=== PATIENT | female | born 1990 | race Caucasian/White ===

== ENCOUNTER 2016-03-29 22:15 | Emergency (ER) | payer OTHER ==
--- NOTE | 2016-03-30 01:02 | ED NURSING NOTES ---
Clinical Report - Nurses [facility] [address] [place] [address] 03/29/2016 22:18 Patient: ALPA ALEJANDRO TRIAGE Triage time 22:25. Acuity: LEVEL 4. Chief Complaint: FEVER, SORE THROAT and BODY ACHES. --22:30 Elias Pate R.N. 22:25 03/29/16. BP: 97/74. HR: 100. RR: 16. O2 saturation: 100%. Temp: 100.5 F. Pain level now 09/29. --22:30 Elias Pate R.N. Weight: 60.7 kg stated. Height/Length: 64 inches Per Patient. BMI: 23. --22:29 Elias Pate R.N. Medications Control Pills. Flexeril 5 mg prn. Robaxin Oral. Vivance 10 day . Zoloft Oral. --22:28 Elias Pate R.N. Medication/allergy information source: the patient. --22:30 Elias Pate R.N. Allergies No Known Drug Allergy. --22:28 Elias Pate R.N. History Arrived by private vehicle. Historian: patient. Accompanied by family. Primary physician (meenu jarrell). Onset. (2 days ago). ( Pt came in with fever, sore throat, body aches for the past 2 days. Pt vomited 2 days ago, but not since.). She has had vomiting (2 days ago). 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 PAST MEDICAL HX: Immunizations: up-to-date. SOCIAL HX: Former smoker. Occasional alcohol use; consumes beer occasionally. No drug use. --22:30 Elias Pate R.N. PROBLEMS: URI. Neck Pain. Abdominal Pain. Scoliosis. Ankle Fracture. --22:28 Elias Pate R.N. Interventions ID band on patient. To treatment room. --22:30 Elias Pate R.N. PHYSICAL ASSESSMENT GENERAL / NEURO / PSYCH: Alert. Oriented X 4. Appears in no acute distress. HEENT: Pupils equal, round and reactive to light. ( sore throat with pain swallowing.). Mucous membranes are pink. RESPIRATORY: Respirations not labored. Chest nontender. Breath sounds within normal limits. CVS: Normal sinus rhythm noted. Capillary refill less than 2 seconds. Pulses within normal limits. GI / : Abdomen soft and nontender and normal bowel sounds. SKIN: Skin intact. Skin is warm and dry. Normal skin turgor. --22:32 Elias Pate R.N. NURSING PROGRESS NOTES ( Pt is laying in bed with non labored breathing.). --00:41 Elias Pate R.N. ( pt is on the phone with bf at bedside.). --00:48 Elias Pate R.N. 00:47 03/30/16. BP: 113/69. HR: 93. RR: 14. O2 saturation: 100%. Pain level now 2/10. --00:48 Elias Pate R.N. DISPOSITION / DISCHARGE Departure time: 0130. Condition at departure: improved. No learning barriers present. Discharge instructions provided and reviewed with the patient. Patient verbalized understanding. Written instructions provided in Guamanian. The patient was discharged by the physician. She was discharged home and accompanied by engineering aide. She left the Emergency Department ambulatory and via private vehicle. Product Mgmt Dev Manager driving. --01:37 Elias Pate R.N. 01:36 03/30/16. BP: 106/69. HR: 95. RR: 17. O2 saturation: 100%. Pain level now 2/10. --01:37 Elias Pate R.N. Locked/Released at 03/30/2016 1:37 by Elias Pate R.N.
--- NOTE | 2016-03-30 01:02 | ED ORDER SUMMARY ---
..... Patient: ALPA ALEJANDRO OrderSheet [facility] VisitID: [id number] [address] [place] [address] 25y, F Registration Date/Time: 03/29/2016 ORDER SHEET Weight: 60.7 kg (stated) Allergies: No Known Drug Allergy GENERAL ORDERS: Rapid Influenza Screen (Nasal Pharyngeal) (swab) Urgent (23:33 03/29/2016 Pola JULIAN) (Ack 23:42 [employer] ER Research Methodologist) (23:54 TLewis R.N.) UA-Culture if indicated Urgent (00:08 03/30/2016 Pola JULIAN) (Ack 0:12 [employer] ER Research Methodologist) (0:26 TLewis R.N.) MEDICATION ORDERS: IV FLUIDS: ORDER SHEET NOTES: [Electronically signed by Elias Pate R.N. (01:37 03/30/2016)] [Electronically signed by Cristina Silver MD (21:56 04/03/2016)] [Electronically locked/signed by Elias Pate R.N. (01:37 03/30/2016)]
--- NOTE | 2016-03-30 01:02 | ED CLINICAL REPORT ---
Clinical Report - Physicians/Mid Levels [facility] [address] [place] [address] 03/29/2016 22:18 Patient: ALPA ALEJANDRO Time Seen: 23:02. Arrived- By private vehicle. Historian- patient. HISTORY OF PRESENT ILLNESS Chief Complaint: FEVER and CHILLS. sore throat. This started 2 days ago and is still present. No muscle aches, loss of appetite, fatigue, chest pain or dyspnea. No cough, decreased oral intake, diarrhea or altered mental status. No skin breakdown noted or rash or joint pain. No decreased urine output. Additional history - The patient has had contact with a sick individual. She is not immunocompromised. No recent hospitalization. No new medication recently administered. No history of cancer. No indwelling line. No recent travel. No known exposure to an animal. No drug use. No alcohol recently. Similar symptoms previously: None. Recent medical care: The patient was seen recently at this facility in the emergency department. ( PT had a recent visit for muscular neck pain, which she states has improved.). REVIEW OF SYSTEMS No anorexia, weight loss, palpitations, calf pain or sputum production. No constipation, black stools, difficulty with urination, flank pain or headache. No sinus pain, easy bruising, enlarged lymph nodes, neck pain or back pain. The patient has had vomiting (- gone). She has had a sore throat. Denies current . All systems otherwise negative, except as recorded above. PAST HISTORY Problems: Scoliosis. Ankle Fracture. Additional Surgeries: no known surgeries. Medications: Control Pills. Flexeril 5 mg prn. Robaxin Oral. Vivance 10 day . Zoloft Oral. Allergies: No Known Drug Allergy. SOCIAL HISTORY Former smoker. Occasional alcohol use. No drug use. ADDITIONAL NOTES The nursing notes have been reviewed. PHYSICAL EXAM Vital Signs: 03/29/2016 22:25 BP: 97/74. HR: 100. RR: 16. O2 saturation: 100%. Temp: 100.5 F. Have been reviewed. Appearance: Alert. No acute distress. Eyes: Pupils equal, round and reactive to light. Eyes normal inspection. ENT: Ears normal. Nose normal. Pharynx normal. Uvula midline. Neck: Normal inspection. Neck supple. CVS: Normal heart rate and rhythm. Heart sounds normal. Pulses normal. Respiratory: No respiratory distress. Breath sounds normal. Abdomen: Soft and nontender. Back: Normal inspection. Skin: Skin warm and dry. Normal skin color. No rash. Normal skin turgor. Extremities: Extremities exhibit normal ROM. Extremities nontender. Neuro: Oriented X 3. No motor deficit. No sensory deficit. LABS, X-RAYS, AND EKG Laboratory Tests: UA-Culture if indicated: (MALIK: 03/30/2016 00:28) ( Mscvd 03/30/2016 00:45) Final results Test Result Flag Units (Reference) URINE COLOR YELLOW URINE APPEARANCE CLEAR URINE GLUCOSE NEGATIVE (NEGATIVE) URINE BILIRUBIN NEGATIVE (NEGATIVE) URINE KETONE TRACE (NEGATIVE) URINE SPECIFIC GRAVITY 1.025 (1.010-1.030) URINE PH 6.0 (5.0-8.0) URINE PROTEIN NEGATIVE (NEGATIVE) URINE UROBILINOGEN 0.2 EU/dL (0.2-1.0) URINE NITRITE NEGATIVE (NEGATIVE) URINE BLOOD TRACE-INTACT (NEGATIVE) URINE LEUK ESTERASE NEGATIVE (NEGATIVE) URINE RBC 0-1 rbc/hpf (0-1) URINE WBC 0-1 wbc/hpf (0-1) URINE EPITHELIAL CELLS 0-1 EPI/hpf (0-5) URINE BACTERIA NONE SEEN (NONE SEEN) URINE COMMENT CULT NOT INDICATED URINE CULTURES ARE SET-UP BASED ON THE FOLLOWING CRITERIA:POSITIVE NITRITEPOSITIVE LEUKOCYTE ESTERASEGREATER THAN 10 WHITE BLOOD CELLSMODERATE (2+) OR GREATER BACTERIA Rapid Influenza Screen: (MALIK: 03/29/2016 23:55) ( Mscvd 03/30/2016 00:18) Final results SPECIMEN DESCRIPTION: SWAB Test Result Flag Units (Reference) RAPID INFLUENZA SCREEN CALLED TO: NA -- DATE: 03/30/16 INFLUENZA A: NEGATIVE SCREEN FOR INFLUENZA A INFLUENZA B: NEGATIVE SCREEN FOR INFLUENZA B . Pulse Oximetry: 03/29/2016 22:25 O2 saturation: 100%. (FIO2 - room air). Interpretation: normal. PROGRESS AND PROCEDURES Course of Care: Pt declined medication. She was worked up with a UA and influenza, both of which were negative. I d/w pt that she may have one of the many other viruses that are going around, and we have discussed indications for return. Patient counseled in person regarding the patient's stable condition, test results, diagnosis and need for follow-up. Concerns were addressed. Old medical records reviewed. Disposition: Discharged. Condition: stable. CLINICAL IMPRESSION Acute viral syndrome INSTRUCTIONS Drink plenty of fluids. (Your tests were negative; however, you most likely have one of the many flu-like viruses that are going around. Please take ibuprofen and Tylenol if you run further fevers.). Warnings: GENERAL WARNINGS: Return or contact your physician immediately if your condition worsens or changes unexpectedly, if not improving as expected, or if other problems arise. Your Current Medications: CONTINUE TAKING THE FOLLOWING MEDICATIONS: Control Pills*. Flexeril 5 mg prn*. Robaxin Oral. Vivance 10 day *. Zoloft Oral. Follow-up: Follow up with your doctor in five days if not better. Understanding of the discharge instructions verbalized by patient. (Electronically signed by Cristina Silver MD 04/03/2016 21:56)
--- NOTE | 2016-03-30 01:02 | ED NURSING NOTES ---
Clinical Report - Nurses [facility] [address] [place] [address] 03/29/2016 22:18 Patient: ALPA ALEJANDRO TRIAGE Triage time 22:25. Acuity: LEVEL 4. Chief Complaint: FEVER, SORE THROAT and BODY ACHES. --22:30 Elias Pate R.N. 22:25 03/29/16. BP: 97/74. HR: 100. RR: 16. O2 saturation: 100%. Temp: 100.5 F. Pain level now 09/29. --22:30 Elias Pate R.N. Weight: 60.7 kg stated. Height/Length: 64 inches Per Patient. BMI: 23. --22:29 Elias Pate R.N. Medications Control Pills. Flexeril 5 mg prn. Robaxin Oral. Vivance 10 day . Zoloft Oral. --22:28 Elias Pate R.N. Medication/allergy information source: the patient. --22:30 Elias Pate R.N. Allergies No Known Drug Allergy. --22:28 Elias Pate R.N. History Arrived by private vehicle. Historian: patient. Accompanied by family. Primary physician (meenu jarrell). Onset. (2 days ago). ( Pt came in with fever, sore throat, body aches for the past 2 days. Pt vomited 2 days ago, but not since.). She has had vomiting (2 days ago). Treatment NURSE RECRUITER: None. PAST MEDICAL HX: Immunizations: up-to-date. SOCIAL HX: Former smoker. Occasional alcohol use; consumes beer occasionally. No drug use. --22:30 Elias Pate R.N. PROBLEMS: URI. Neck Pain. Abdominal Pain. Scoliosis. Ankle Fracture. --22:28 Elias Pate R.N. Interventions ID band on patient. To treatment room. --22:30 Elias Pate R.N. PHYSICAL ASSESSMENT GENERAL / NEURO / PSYCH: Alert. Oriented X 4. Appears in no acute distress. HEENT: Pupils equal, round and reactive to light. ( sore throat with pain swallowing.). Mucous membranes are pink. RESPIRATORY: Respirations not labored. Chest nontender. Breath sounds within normal limits. CVS: Normal sinus rhythm noted. Capillary refill less than 2 seconds. Pulses within normal limits. GI / : Abdomen soft and nontender and normal bowel sounds. SKIN: Skin intact. Skin is warm and dry. Normal skin turgor. --22:32 Elias Pate R.N. NURSING PROGRESS NOTES ( Pt is laying in bed with non labored breathing.). --00:41 Elias Pate R.N. ( pt is on the phone with bf at bedside.). --00:48 Elias Pate R.N. 00:47 03/30/16. BP: 113/69. HR: 93. RR: 14. O2 saturation: 100%. Pain level now 2/10. --00:48 Elias Pate R.N. DISPOSITION / DISCHARGE Departure time: 0130. Condition at departure: improved. No learning barriers present. Discharge instructions provided and reviewed with the patient. Patient verbalized understanding. Written instructions provided in New Zealander. The patient was discharged by the physician. She was discharged home and accompanied by mixer attendant. She left the Emergency Department ambulatory and via private vehicle. Aircraft Time Clerk driving. --01:37 Elias Pate R.N. 01:36 03/30/16. BP: 106/69. HR: 95. RR: 17. O2 saturation: 100%. Pain level now 2/10. --01:37 Elias Pate R.N. Locked/Released at 03/30/2016 1:37 by Elias Pate R.N.
--- NOTE | 2016-03-30 01:02 | ED ORDER SUMMARY ---
..... Patient: ALPA ALEJANDRO OrderSheet [facility] VisitID: [id number] [address] [place] [address] 25y, F Registration Date/Time: 03/29/2016 ORDER SHEET Weight: 60.7 kg (stated) Allergies: No Known Drug Allergy GENERAL ORDERS: Rapid Influenza Screen (Nasal Pharyngeal) (swab) Urgent (23:33 03/29/2016 Pola JULIAN) (Ack 23:42 [employer] ER Line Runner) (23:54 TLewis R.N.) UA-Culture if indicated Urgent (00:08 03/30/2016 Pola JULIAN) (Ack 0:12 [employer] ER Line Runner) (0:26 TLewis R.N.) MEDICATION ORDERS: IV FLUIDS: ORDER SHEET NOTES: [Electronically signed by Elias Pate R.N. (01:37 03/30/2016)] [Electronically signed by Cristina Silver MD (21:56 04/03/2016)] [Electronically locked/signed by Elias Pate R.N. (01:37 03/30/2016)]
--- NOTE | 2016-04-03 21:57 | ED MED RECONCILIATION SUMMARY ---
Patient: ALPA ALEJANDRO Medication Reconciliation Report [facility] VisitID: [id number] [address] [place] [address] 25y, F Registration Date/Time: 03/29/2016 Weight: 60.7 kg Height/Length: 64 in. BMI: 23.0 ALLERGIES: No Known Drug Allergy The patient's Home Medications are listed below: CONTINUE TAKING THE FOLLOWING MEDICATIONS: Control Pills Flexeril 5 mg prn Robaxin Oral Vivance 10 day Zoloft Oral The source(s) of the original Home Medication information: patient The following Medications were given to the patient in the Emergency Department: None. The following Medications were prescribed to the patient: None.
--- NOTE | 2016-04-03 21:57 | ED MED RECONCILIATION SUMMARY ---
Patient: ALPA ALEJANDRO Medication Reconciliation Report [facility] VisitID: [id number] [address] [place] [address] 25y, F Registration Date/Time: 03/29/2016 Weight: 60.7 kg Height/Length: 64 in. BMI: 23.0 ALLERGIES: No Known Drug Allergy The patient's Home Medications are listed below: CONTINUE TAKING THE FOLLOWING MEDICATIONS: Control Pills Flexeril 5 mg prn Robaxin Oral Vivance 10 day Zoloft Oral The source(s) of the original Home Medication information: patient The following Medications were given to the patient in the Emergency Department: None. The following Medications were prescribed to the patient: None.
--- NOTE | 2016-04-03 21:57 | ED DISCHARGE INSTRUCTIONS ---
Patient: ALPA ALEJANDRO General Instructions [facility] VisitID: [id number] [address] [place] [address] 25y, F Registration Date/Time: 03/29/2016 Acute viral syndrome INSTRUCTIONS Drink plenty of fluids. (Your tests were negative; however, you most likely have one of the many flu-like viruses that are going around. Please take ibuprofen and Tylenol if you run further fevers.). Warnings: GENERAL WARNINGS: Return or contact your physician immediately if your condition worsens or changes unexpectedly, if not improving as expected, or if other problems arise. Your Current Medications: CONTINUE TAKING THE FOLLOWING MEDICATIONS: Control Pills*. Flexeril 5 mg prn*. Robaxin Oral. Vivance 10 day *. Zoloft Oral. Follow-up: Follow up with your doctor in five days if not better. Understanding of the discharge instructions verbalized by patient. ADDITIONAL INFORMATION Viral Syndrome (Adult) A viral illness may cause a number of symptoms. The symptoms depend on the part of the body that the virus affects. If it settles in the nose, throat, and lungs, it may cause cough, sore throat, congestion, and sometimes headache. If it settles in the stomach and intestinal tract, it may cause vomiting and diarrhea. Sometimes it causes vague symptoms like "aching all over," feeling tired, loss of appetite, or fever. A viral illness usually lasts1 to 2 weeks, but sometimes it lasts longer. In some cases, a more serious infection can look like a viral syndrome in the first few days of the illness. You may need anotherexam and additional teststo know the difference.Watch for the warning signs listed below. Home care Follow these guidelines for taking care of yourself at home: If symptoms are severe, rest at home for the first 2 to 3 days. Stay away from cigarette smoke - both your smoke and the smoke from others. You may useacetaminophen or ibuprofen for fever, muscle aching, and headache, unless another medicine was prescribed for this.If you have chronic liver or kidney disease or ever had a stomach ulcer or GI bleeding, talk with your doctor before using these medicinesNo one who is younger than 18 and ill with a fever should take aspirin. It may cause severe liver damage. Your appetite may be poor, so a light diet is fine. Avoid dehydration by drinking 8 to 12 8-ounce glasses of fluids each day. This may include water; orange juice; lemonade; apple, grape, and cranberry juice; clear fruit drinks; electrolyte replacement and sports drinks; and decaffeinated teas and coffee. If you have been diagnosed with a kidney disease, ask your doctor how much and what types of fluids you should drink to prevent dehydration. If you have kidney disease, drinking too much fluid can cause it build up in the your body and be dangerous to your health. Ecuq-lko-nrkwvxj remedies won't shorten the length of the illness but may be helpful forcough, sore throat; and nasal and sinus congestion. Don't use decongestants if you have high blood pressure. Follow-up care Follow up with your health care provider if you do not improve over the next week. When to seek medical care Get prompt medical attention if any of these occur: Cough with lots of colored sputum (mucus) or blood in your sputum Chest pain, shortness of breath, wheezing, or difficulty breathing Severe headache; face, neck, or ear pain Severe, constant pain in the lower right side of your belly (abdominal) Continued vomiting (cant keep liquids down) Frequent diarrhea (more than 5 times a day); blood (red or black color) or mucus in diarrhea Feeling weak, dizzy, or like you are going to faint Extreme thirst Fever of 100.4 F (38 C) oral or higher, not better with fever medication Convulsion You have been given the following additional information: Viral Syndrome (Adult) (Electronically signed by Cristina Silver MD 04/03/2016 21:56)
--- NOTE | 2016-04-03 21:57 | ED MAR SUMMARY ---
..... Medication Administration Record [facility] [address], [place] [id number] Patient: APLA ALEJANDRO Visit ID: [id number] 25y, F Weight: 60.7 kg Height/Length: 64 in BMI: 23 ALLERGIES: No Known Drug Allergy
--- NOTE | 2016-04-03 21:57 | ED MAR SUMMARY ---
..... Medication Administration Record [facility] [address] [place], [place] [id number] Patient: ALPA ALEJANDRO Visit ID: [id number] 25y, F Weight: 60.7 kg Height/Length: 64 in BMI: 23 ALLERGIES: No Known Drug Allergy
== END 2016-03-30 01:30 | disposition home or self-care (01) ==
LOC: ED SRH 22:15
DX: B34.9 Viral infection, unspecified (principal); J02.9 Acute pharyngitis, unspecified
CPT/HCPCS: 90004; 91400

== ENCOUNTER 2016-04-15 13:40 | Emergency (ER) | payer OTHER ==
--- NOTE | 2016-04-15 15:50 | ED ORDER SUMMARY ---
..... Patient: ALPA ALEJANDRO OrderSheet [facility] VisitID: [id number] [place] [address] 25y, F Registration Date/Time: 04/15/2016 ORDER SHEET Weight: 63.0 kg (stated) Allergies: No Known Drug Allergy GENERAL ORDERS: Bladder Scan (13:58 04/15/2016 EKoroleva P.A.-C) (14:10 JBoardley R.N.) UA-Culture if indicated Urgent (14:00 04/15/2016 EKoroleva P.A.-C) (Ack 14:12 LMuller) (15:10 JBoardley R.N.) CBC w Diff Urgent (14:46 04/15/2016 EKoroleva P.A.-C) (Ack 15:07 LMuller) (15:19 LMuller) BMP Urgent (14:46 04/15/2016 EKoroleva P.A.-C) (Ack 15:07 LMuller) (15:19 LMuller) Urine Urgent (15:15 04/15/2016 EKoroleva P.A.-C) (15:19 LMuller) MEDICATION ORDERS: IV FLUIDS: ORDER SHEET NOTES: [Electronically signed by Rayna DelarosaA.-C (16:40 04/15/2016)] [Electronically signed by Aureliano Jackson R.N. (19:16 04/15/2016)] [Electronically locked/signed by Aureliano Jackson R.N. (19:16 04/15/2016)]
--- NOTE | 2016-04-15 15:50 | ED NURSING NOTES ---
Clinical Report - Nurses [facility] [address] [place] [address] 04/15/2016 13:41 Patient: ALPA ALEJANDRO TRIAGE Triage time 13:56. Acuity: LEVEL 4. Chief Complaint: (URINE RETENTION). 13:56 04/15/16. 13:56 04/15/16. --14:01 Aureliano Jackson R.N. 13:56 04/15/16. BP: 121/79. HR: 99. RR: 18. O2 saturation: 100% on room air. Temp: 98.2 F (oral). --14:01 Aureliano Jackson R.N. Weight: 63 kg stated. Height/Length: 64 inches Per Patient. BMI: 23.9. --13:57 Aureliano Jackson R.N. Medications Control Pills. Vivance 10 day . Zoloft Oral. --13:59 Aureliano Jackson R.N. Medication/allergy information source: the patient. --14:01 Aureliano Jackson R.N. Allergies No Known Drug Allergy. --13:59 Aureliano Jackson R.N. History Arrived by private vehicle, and accompanied by family. Primary physician (BALBIR). 13:56 04/15/16. This started last night. Onset. (2300). Treatment OBSTETRICS AND GYNECOLOGY PROFESSOR: None. PAST MEDICAL HX: Immunizations: status is unknown. Last normal menstrual period- Started on the APR 08. SOCIAL HX: Never smoker. Occasional alcohol use. No drug use. No infectious disease exposure. ABUSE ASSESSMENT: No report of abuse. FALL RISK ASSESSMENT: Fall risk assessment completed. No fall risk identified. NUTRITIONAL RISK ASSESSMENT: The nutritional risk assessment revealed no deficiencies. FUNCTIONAL ASSESSMENT: Functional assessment: no impairments noted. LEARNING NEEDS ASSESSMENT: The learning needs assessment revealed no barriers. SKIN INTEGRITY ASSESSMENT: Skin integrity risk assessment completed. No skin integrity risk identified. --14:01 Aureliano Jackson R.N. PROBLEMS: Viral Disease. URI. Neck Pain. Abdominal Pain. Scoliosis. Ankle Fracture. --13:59 Aureliano Jackson R.N. UTI - Urinary Tract Infection. --13:59 Aureliano Jackson R.N. ADDITIONAL SURGERIES: Vulvaplasty. --13:59 Aureliano Jackson R.N. Assessment 13:56 04/15/16. --14:01 Aureliano Jackson R.N. Interventions 13:56 04/15/16. 13:56 04/15/16. ID and allergy band on patient. To treatment room. --14:01 Aureliano Jackson R.N. PHYSICAL ASSESSMENT 13:57 04/15/16. Ambulatory to room. GENERAL / NEURO / PSYCH: Alert. Oriented X 4. Appears in no acute distress. RESPIRATORY: Respirations not labored. CVS: Capillary refill less than 2 seconds. SKIN: Skin is warm and dry. --13:57 Aureliano Jackson R.N. NURSING PROGRESS NOTES 13:57 04/15/16. The plan of care for this patient has been created. Head of bed elevated. Two patient identifiers checked. Call light placed in reach. Side rails up x 2. Bed placed in lowest position. Brakes of bed on. Brakes of chair on. --13:57 Aureliano Jackson R.N. 14:11 04/15/16. ( Bladder scan 195mLs, completed bladder scan 5 times and consistently 195mLs during each scan.). --14:11 Aureliano Jackson R.N. 15:05 04/15/16. Bell catheter placed. Reason for indwelling catheter: retention. During procedure hand hygiene observed and sterile equipment and aseptic technique used. Attached to bedside drainage bag positioned below the bladder and secured with velcro. (balloon filled with 10 ml sterile saline). --15:05 Deirdre Valencia R.N. 15:10 04/15/16. Catheterized urine collected with return of yellow-colored urine; sample sent to lab for urinalysis and culture. Specimen labeled in the presence of the patient. --15:10 Aureliano Jackson R.N. late entry -1520 Drained 300 mLs during bell placement. --16:19 Kym Bah 16:21 04/15/16. ( Changed bell bag to leg bag educated patient, pt will follow up with PCP/Urology and will leave bell in place until then. Pt educated and given bell bag for sleeping at night and educated how to change leg bag to bell bag.). --16:21 Kym Bah. DISPOSITION / DISCHARGE 16:04/15/16. Condition at departure: improved. The goals identified in the patient's plan of care were met. No learning barriers present. Discharge instructions provided and reviewed with the patient. Reviewed warnings. Reviewed medication(s). Treatments reviewed. Reviewed referral to a urologist. Patient and family verbalized understanding. Written instructions provided in Welsh. The patient was discharged by the physician transportation assistant. She was discharged home and accompanied by family. She left the Emergency Department ambulatory and via private vehicle. Family member driving. FALL RISK ASSESSMENT: Fall risk assessment completed. No fall risk identified. --16:22 Kym Bah 16:21 04/15/16. BP: 124/78. HR: 80. RR: 14. O2 saturation: 99% on room air. Temp: 98.2 F (oral). --16:22 Kym Bah 16:22 04/15/16. Departure time: 16:22. --16:22 Kym Bah. Locked/Released at 04/15/2016 19:16 by Aureliano Jackson R.N.
--- NOTE | 2016-04-15 15:50 | ED CLINICAL REPORT ---
Clinical Report - Physicians/Mid Levels [facility] [address] [place] [address] 04/15/2016 13:41 Patient: ALPA ALEJANDRO Time Seen: 1430. Arrived- By private vehicle. Historian- patient. HISTORY OF PRESENT ILLNESS Chief Complaint: PELVIC PAIN and DYSURIA. 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 The patient has had pelvic pain. No pain with urination or urgency of urination. (patient on recent antibiotics, prednisone and clindamycin, for oral infection, and sensation over the liculty voiding this is been going on for 5 days, today unable to void over the last 12 hours. She saw her regular follow-up yesterday.). REVIEW OF SYSTEMS No vomiting, diarrhea, skin rash or enlarged lymph nodes. All systems otherwise negative, except as recorded above. ADDITIONAL NOTES The nursing notes have been reviewed. PHYSICAL EXAM Vital Signs: 04/15/2016 13:56 BP: 121/79. HR: 99. RR: 18. O2 saturation: 100%. Temp: 98.2 F. Appearance: Alert. HEENT: Normal external inspection. Neck: Neck supple. CVS: Heart sounds normal. Respiratory: No respiratory distress. Breath sounds normal. Abdomen: Soft and nontender. Bowel sounds normal. No mass. No distention, mass present or organomegaly. Skin: Skin warm. Normal skin color. LABS, X-RAYS, AND EKG Laboratory Tests: UA-Culture if indicated: (MALIK: 04/15/2016 15:00) ( MsgRcvd 04/15/2016 15:30) Final results Test Result Flag Units (Reference) URINE COLOR YELLOW URINE APPEARANCE CLEAR URINE GLUCOSE NEGATIVE (NEGATIVE) URINE BILIRUBIN NEGATIVE (NEGATIVE) URINE KETONE NEGATIVE (NEGATIVE) URINE SPECIFIC GRAVITY 1.015 (1.010-1.030) URINE PH 6.0 (5.0-8.0) URINE PROTEIN NEGATIVE (NEGATIVE) URINE UROBILINOGEN 0.2 EU/dL (0.2-1.0) URINE NITRITE NEGATIVE (NEGATIVE) URINE BLOOD NEGATIVE (NEGATIVE) URINE LEUK ESTERASE NEGATIVE (NEGATIVE) URINE RBC NONE SEEN rbc/hpf (0-1) URINE WBC 0-1 wbc/hpf (0-1) URINE EPITHELIAL CELLS 1-3 EPI/hpf (0-5) URINE BACTERIA NONE SEEN (NONE SEEN) URINE COMMENT CULT NOT INDICATED URINE CULTURES ARE SET-UP BASED ON THE FOLLOWING CRITERIA:POSITIVE NITRITEPOSITIVE LEUKOCYTE ESTERASEGREATER THAN 10 WHITE BLOOD CELLSMODERATE (2+) OR GREATER BACTERIA Urine: (MALIK: 04/15/2016 15:15) ( ScgRcvd 04/15/2016 16:13) Final results Test Result Flag Units (Reference) URINE NEGATIVE CBC w Diff: (MALIK: 04/15/2016 15:17) ( ScgRcvd 04/15/2016 15:33) Final results Test Result Flag Units (Reference) WHITE BLOOD COUNT 10.3 K/uL (4.5-11.5) RED BLOOD COUNT 3.69 L M/uL (4.00-5.20) HEMOGLOBIN 12.4 gm/dL (12.0-16.0) HEMATOCRIT 36.2 % (36.0-46.0) MEAN CELL VOLUME 98 fL (80-100) MEAN CORPUSCULAR HGB 34 pg (26-34) MEAN CORPUSCULAR HGB CONC 34 g/dL (31-37) RED CELL DISTRIBUTION WIDTH 12.8 % (11.6-14.8) PLATELET COUNT 219 K/uL (150-400) NEUTROPHIL % 71.9 % (50-75) LYMPH % 21.4 L % (25-40) MONO % 5.4 % (3-14) EOSINOPHIL % 1.1 % (0-4) BASOPHIL % 0.2 % (0-2) BMP: (MALIK: 04/15/2016 15:17) ( MsgRcvd 04/15/2016 15:43) Final results Test Result Flag Units (Reference) GLUCOSE 98 mg/dL (70-110) BUN 6 L mg/dL (7-18) CREATININE 0.6 mg/dL (0.6-1.3) Estimated GFR >60 mL/min Estimated GFR- >60 mL/min Note: Persistent reduction over 3 months in eGFR<60 mL/min/1.73 m2 defines CKD. Patients with eGFR values>=60 mL/min/1.73 m2 may also have CKD if evidence ofpersistent proteinuria. Additional information may be foundat www.kidney.org. SODIUM 141 mmol/L (136-145) POTASSIUM 3.5 mmol/L (3.5-5.1) CHLORIDE 106 mmol/L (98-107) CARBON DIOXIDE 24 mmol/L (21-32) CALCIUM 8.2 L mg/dL (8.5-10.1) . PROGRESS AND PROCEDURES Course of Care: Pt had pelvic exam yesterday, sexually active at times with no condom use, with her SO, male and h/o herpes, no active rash at this time. WIll forego pelvic exam as pt has had sx at such time. Patient was immediately 500 cc output, with improvement of symptoms with Sanchez in place. May be neurogenic, obviously nonobstructive, had pelvic exam yesterday, will forego such today. Patient has good follow-up, to have such. Reports similar incident occurred with prior . 04/15/2016 16:21 BP: 124/78. HR: 80. RR: 14. O2 saturation: 99%. Temp: 98.2 F. Patient is stable. Patient/family counseled. Disposition: Discharged. CLINICAL IMPRESSION Sanchez catheter replacement Drug induced urinary retention. INSTRUCTIONS Drink plenty of fluids. (pyridum can help with spasms, turn urine an orange color Follow up with your primary care DR in 7 days Warm packs to lower abdomen MOTRIN/ TYLENOL). Prescription Medications: Pyridium 200 mg: take 1 orally every 8 hours as needed for urinary problems. Dispense six (6). No refills. Substitution is permissible. Follow-up: Follow up with a specialist Urology if needed further : [phone] Pierre Cook. Follow up with your doctor. (Electronically signed by Rayna Delarosa P.A.-C 04/15/2016 16:40)
--- NOTE | 2016-04-15 15:50 | ED ORDER SUMMARY ---
..... Patient: ALPA ALEJANDRO OrderSheet [facility] VisitID: [id number] [place] [address] 25y, F Registration Date/Time: 04/15/2016 ORDER SHEET Weight: 63.0 kg (stated) Allergies: No Known Drug Allergy GENERAL ORDERS: Bladder Scan (13:58 04/15/2016 EKoroleva P.A.-C) (14:10 JBoardley R.N.) UA-Culture if indicated Urgent (14:00 04/15/2016 EKoroleva P.A.-C) (Ack 14:12 LMuller) (15:10 JBoardley R.N.) CBC w Diff Urgent (14:46 04/15/2016 EKoroleva P.A.-C) (Ack 15:07 LMuller) (15:19 LMuller) BMP Urgent (14:46 04/15/2016 EKoroleva P.A.-C) (Ack 15:07 LMuller) (15:19 LMuller) Urine Urgent (15:15 04/15/2016 EKoroleva P.A.-C) (15:19 LMuller) MEDICATION ORDERS: IV FLUIDS: ORDER SHEET NOTES: [Electronically signed by Rayna DelarosaA.-C (16:40 04/15/2016)] [Electronically signed by Aureliano Jackson R.N. (19:16 04/15/2016)] [Electronically locked/signed by Aureliano Jackson R.N. (19:16 04/15/2016)]
--- NOTE | 2016-04-15 15:50 | ED NURSING NOTES ---
Clinical Report - Nurses [facility] [address] [place] [address] 04/15/2016 13:41 Patient: ALPA ALEJANDRO TRIAGE Triage time 13:56. Acuity: LEVEL 4. Chief Complaint: (URINE RETENTION). 13:56 04/15/16. 13:56 04/15/16. --14:01 Aureliano Jackson R.N. 13:56 04/15/16. BP: 121/79. HR: 99. RR: 18. O2 saturation: 100% on room air. Temp: 98.2 F (oral). --14:01 Aureliano Jackson R.N. Weight: 63 kg stated. Height/Length: 64 inches Per Patient. BMI: 23.9. --13:57 Aureliano Jackson R.N. Medications Control Pills. Vivance 10 day . Zoloft Oral. --13:59 Aureliano Jackson R.N. Medication/allergy information source: the patient. --14:01 Aureliano Jackson R.N. Allergies No Known Drug Allergy. --13:59 Aureliano Jackson R.N. History Arrived by private vehicle, and accompanied by family. Primary physician (BALBIR). 13:56 04/15/16. This started last night. Onset. (2300). 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 PAST MEDICAL HX: Immunizations: status is unknown. Last normal menstrual period- Started on the APR 08. SOCIAL HX: Never smoker. Occasional alcohol use. No drug use. No infectious disease exposure. ABUSE ASSESSMENT: No report of abuse. FALL RISK ASSESSMENT: Fall risk assessment completed. No fall risk identified. NUTRITIONAL RISK ASSESSMENT: The nutritional risk assessment revealed no deficiencies. FUNCTIONAL ASSESSMENT: Functional assessment: no impairments noted. LEARNING NEEDS ASSESSMENT: The learning needs assessment revealed no barriers. SKIN INTEGRITY ASSESSMENT: Skin integrity risk assessment completed. No skin integrity risk identified. --14:01 Aureliano Jackson R.N. PROBLEMS: Viral Disease. URI. Neck Pain. Abdominal Pain. Scoliosis. Ankle Fracture. --13:59 Aureliano Jackson R.N. UTI - Urinary Tract Infection. --13:59 Aureliano Jackson R.N. ADDITIONAL SURGERIES: Vulvaplasty. --13:59 Aureliano Jackson R.N. Assessment 13:56 04/15/16. --14:01 Aureliano Jackson R.N. Interventions 13:56 04/15/16. 13:56 04/15/16. ID and allergy band on patient. To treatment room. --14:01 Aureliano Jackson R.N. PHYSICAL ASSESSMENT 13:57 04/15/16. Ambulatory to room. GENERAL / NEURO / PSYCH: Alert. Oriented X 4. Appears in no acute distress. RESPIRATORY: Respirations not labored. CVS: Capillary refill less than 2 seconds. SKIN: Skin is warm and dry. --13:57 Aureliano Jackson R.N. NURSING PROGRESS NOTES 13:57 04/15/16. The plan of care for this patient has been created. Head of bed elevated. Two patient identifiers checked. Call light placed in reach. Side rails up x 2. Bed placed in lowest position. Brakes of bed on. Brakes of chair on. --13:57 Aureliano Jackson R.N. 14:11 04/15/16. ( Bladder scan 195mLs, completed bladder scan 5 times and consistently 195mLs during each scan.). --14:11 Aureliano Jackson R.N. 15:05 04/15/16. Bell catheter placed. Reason for indwelling catheter: retention. During procedure hand hygiene observed and sterile equipment and aseptic technique used. Attached to bedside drainage bag positioned below the bladder and secured with velcro. (balloon filled with 10 ml sterile saline). --15:05 Deirdre Valencia R.N. 15:10 04/15/16. Catheterized urine collected with return of yellow-colored urine; sample sent to lab for urinalysis and culture. Specimen labeled in the presence of the patient. --15:10 Aureliano Jackson R.N. late entry -1520 Drained 300 mLs during bell placement. --16:19 Kym Bah 16:21 04/15/16. ( Changed bell bag to leg bag educated patient, pt will follow up with PCP/Urology and will leave bell in place until then. Pt educated and given bell bag for sleeping at night and educated how to change leg bag to bell bag.). --16:21 Kym Bah. DISPOSITION / DISCHARGE 16:04/15/16. Condition at departure: improved. The goals identified in the patient's plan of care were met. No learning barriers present. Discharge instructions provided and reviewed with the patient. Reviewed warnings. Reviewed medication(s). Treatments reviewed. Reviewed referral to a urologist. Patient and family verbalized understanding. Written instructions provided in Iraqi. 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 She was discharged home and accompanied by family. She left the Emergency Department ambulatory and via private vehicle. Family member driving. FALL RISK ASSESSMENT: Fall risk assessment completed. No fall risk identified. --16:22 Kym Bah 16:21 04/15/16. BP: 124/78. HR: 80. RR: 14. O2 saturation: 99% on room air. Temp: 98.2 F (oral). --16:22 Kym Bah 16:22 04/15/16. Departure time: 16:22. --16:22 Kym Bah. Locked/Released at 04/15/2016 19:16 by Aureliano Jackson R.N.
--- NOTE | 2016-04-15 15:50 | ED CLINICAL REPORT ---
Clinical Report - Physicians/Mid Levels [facility] [address] [place] [address] 04/15/2016 13:41 Patient: ALPA ALEJANDRO Time Seen: 1430. Arrived- By private vehicle. Historian- patient. HISTORY OF PRESENT ILLNESS Chief Complaint: PELVIC PAIN and DYSURIA. 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 The patient has had pelvic pain. No pain with urination or urgency of urination. (patient on recent antibiotics, prednisone and clindamycin, for oral infection, and sensation over the liculty voiding this is been going on for 5 days, today unable to void over the last 12 hours. She saw her regular follow-up yesterday.). REVIEW OF SYSTEMS No vomiting, diarrhea, skin rash or enlarged lymph nodes. All systems otherwise negative, except as recorded above. ADDITIONAL NOTES The nursing notes have been reviewed. PHYSICAL EXAM Vital Signs: 04/15/2016 13:56 BP: 121/79. HR: 99. RR: 18. O2 saturation: 100%. Temp: 98.2 F. Appearance: Alert. HEENT: Normal external inspection. Neck: Neck supple. CVS: Heart sounds normal. Respiratory: No respiratory distress. Breath sounds normal. Abdomen: Soft and nontender. Bowel sounds normal. No mass. No distention, mass present or organomegaly. Skin: Skin warm. Normal skin color. LABS, X-RAYS, AND EKG Laboratory Tests: UA-Culture if indicated: (MALIK: 04/15/2016 15:00) ( MsgRcvd 04/15/2016 15:30) Final results Test Result Flag Units (Reference) URINE COLOR YELLOW URINE APPEARANCE CLEAR URINE GLUCOSE NEGATIVE (NEGATIVE) URINE BILIRUBIN NEGATIVE (NEGATIVE) URINE KETONE NEGATIVE (NEGATIVE) URINE SPECIFIC GRAVITY 1.015 (1.010-1.030) URINE PH 6.0 (5.0-8.0) URINE PROTEIN NEGATIVE (NEGATIVE) URINE UROBILINOGEN 0.2 EU/dL (0.2-1.0) URINE NITRITE NEGATIVE (NEGATIVE) URINE BLOOD NEGATIVE (NEGATIVE) URINE LEUK ESTERASE NEGATIVE (NEGATIVE) URINE RBC NONE SEEN rbc/hpf (0-1) URINE WBC 0-1 wbc/hpf (0-1) URINE EPITHELIAL CELLS 1-3 EPI/hpf (0-5) URINE BACTERIA NONE SEEN (NONE SEEN) URINE COMMENT CULT NOT INDICATED URINE CULTURES ARE SET-UP BASED ON THE FOLLOWING CRITERIA:POSITIVE NITRITEPOSITIVE LEUKOCYTE ESTERASEGREATER THAN 10 WHITE BLOOD CELLSMODERATE (2+) OR GREATER BACTERIA Urine: (MALIK: 04/15/2016 15:15) ( WygRcvd 04/15/2016 16:13) Final results Test Result Flag Units (Reference) URINE NEGATIVE CBC w Diff: (MALIK: 04/15/2016 15:17) ( WygRcvd 04/15/2016 15:33) Final results Test Result Flag Units (Reference) WHITE BLOOD COUNT 10.3 K/uL (4.5-11.5) RED BLOOD COUNT 3.69 L M/uL (4.00-5.20) HEMOGLOBIN 12.4 gm/dL (12.0-16.0) HEMATOCRIT 36.2 % (36.0-46.0) MEAN CELL VOLUME 98 fL (80-100) MEAN CORPUSCULAR HGB 34 pg (26-34) MEAN CORPUSCULAR HGB CONC 34 g/dL (31-37) RED CELL DISTRIBUTION WIDTH 12.8 % (11.6-14.8) PLATELET COUNT 219 K/uL (150-400) NEUTROPHIL % 71.9 % (50-75) LYMPH % 21.4 L % (25-40) MONO % 5.4 % (3-14) EOSINOPHIL % 1.1 % (0-4) BASOPHIL % 0.2 % (0-2) BMP: (MALIK: 04/15/2016 15:17) ( MsgRcvd 04/15/2016 15:43) Final results Test Result Flag Units (Reference) GLUCOSE 98 mg/dL (70-110) BUN 6 L mg/dL (7-18) CREATININE 0.6 mg/dL (0.6-1.3) Estimated GFR >60 mL/min Estimated GFR- >60 mL/min Note: Persistent reduction over 3 months in eGFR<60 mL/min/1.73 m2 defines CKD. Patients with eGFR values>=60 mL/min/1.73 m2 may also have CKD if evidence ofpersistent proteinuria. Additional information may be foundat www.kidney.org. SODIUM 141 mmol/L (136-145) POTASSIUM 3.5 mmol/L (3.5-5.1) CHLORIDE 106 mmol/L (98-107) CARBON DIOXIDE 24 mmol/L (21-32) CALCIUM 8.2 L mg/dL (8.5-10.1) . PROGRESS AND PROCEDURES Course of Care: Pt had pelvic exam yesterday, sexually active at times with no condom use, with her SO, male and h/o herpes, no active rash at this time. WIll forego pelvic exam as pt has had sx at such time. Patient was immediately 500 cc output, with improvement of symptoms with Sanchez in place. May be neurogenic, obviously nonobstructive, had pelvic exam yesterday, will forego such today. Patient has good follow-up, to have such. Reports similar incident occurred with prior . 04/15/2016 16:21 BP: 124/78. HR: 80. RR: 14. O2 saturation: 99%. Temp: 98.2 F. Patient is stable. Patient/family counseled. Disposition: Discharged. CLINICAL IMPRESSION Sanchez catheter replacement Drug induced urinary retention. INSTRUCTIONS Drink plenty of fluids. (pyridum can help with spasms, turn urine an orange color Follow up with your primary care DR in 7 days Warm packs to lower abdomen MOTRIN/ TYLENOL). Prescription Medications: Pyridium 200 mg: take 1 orally every 8 hours as needed for urinary problems. Dispense six (6). No refills. Substitution is permissible. Follow-up: Follow up with a specialist Urology if needed further : [phone] Pierre Cook. Follow up with your doctor. (Electronically signed by Rayna Delarosa P.A.-C 04/15/2016 16:40)
--- NOTE | 2016-04-15 19:16 | ED MAR SUMMARY ---
..... Medication Administration Record [facility] [address], [place] [id number] Patient: ALPA ALEJANDRO Visit ID: [id number] 25y, F Weight: 63.0 kg Height/Length: 64 in BMI: 23.9 ALLERGIES: No Known Drug Allergy
--- NOTE | 2016-04-15 19:16 | ED MAR SUMMARY ---
..... Medication Administration Record [facility] [address] [place] [place], [place] [id number] Patient: ALPA ALEJANDRO Visit ID: [id number] 25y, F Weight: 63.0 kg Height/Length: 64 in BMI: 23.9 ALLERGIES: No Known Drug Allergy
--- NOTE | 2016-04-15 19:16 | ED MED RECONCILIATION SUMMARY ---
Patient: ALPA ALEJANDRO Medication Reconciliation Report [facility] VisitID: [id number] [address] [place] [address] 25y, F Registration Date/Time: 04/15/2016 Weight: 63.0 kg Height/Length: 64 in. BMI: 23.9 ALLERGIES: No Known Drug Allergy The patient's Home Medications are listed below: THE FOLLOWING MEDICATIONS NEED TO BE RECONCILED: Control Pills Vivance 10 day Zoloft Oral The source(s) of the original Home Medication information: patient The following Medications were given to the patient in the Emergency Department: None. The following Medications were prescribed to the patient: Pyridium 200 mg: take 1 orally every 8 hours as needed for urinary problems. Dispense six (6). No refills. Substitution is permissible. -- Rayna Delarosa P.A.-C
--- NOTE | 2016-04-15 19:16 | ED MED RECONCILIATION SUMMARY ---
Patient: ALPA ALEJANDRO Medication Reconciliation Report [facility] VisitID: [id number] [address] [place] [address] 25y, F Registration Date/Time: 04/15/2016 Weight: 63.0 kg Height/Length: 64 in. BMI: 23.9 ALLERGIES: No Known Drug Allergy The patient's Home Medications are listed below: THE FOLLOWING MEDICATIONS NEED TO BE RECONCILED: Control Pills Vivance 10 day Zoloft Oral The source(s) of the original Home Medication information: patient The following Medications were given to the patient in the Emergency Department: None. The following Medications were prescribed to the patient: Pyridium 200 mg: take 1 orally every 8 hours as needed for urinary problems. Dispense six (6). No refills. Substitution is permissible. -- Rayna Delarosa P.A.-C
--- NOTE | 2016-04-15 19:16 | ED DISCHARGE INSTRUCTIONS ---
Patient: ALPA ALEJANDRO General Instructions [facility] VisitID: [id number] [place] [address] 25y, F Registration Date/Time: 04/15/2016 Sanchez catheter replacement Drug induced urinary retention. INSTRUCTIONS Drink plenty of fluids. (pyridum can help with spasms, turn urine an orange color Follow up with your primary care DR in 7 days Warm packs to lower abdomen MOTRIN/ TYLENOL). Prescription Medications: Pyridium 200 mg: take 1 orally every 8 hours as needed for urinary problems. Dispense six (6). No refills. Substitution is permissible. Follow-up: Follow up with a specialist Urology if needed further : [phone] Pierre Cook. Follow up with your doctor. ADDITIONAL INFORMATION Sanchez Catheter Care A Sanchez catheter is a rubber tube that is placed through the urethra (opening where urine comes out) and into the bladder. This helps drain urine from the bladder. There is a small balloon on the end of the tube that is inflated after insertion. This keeps the catheter from sliding out of the bladder. A Sanchez catheter is used to treat urinary retention (unable to pass urine). It is also used when there is incontinence (loss of bladder control). Home Care: Finish taking any prescribed antibiotic even if you are feeling better before then. It is important to keep bacteria from getting into the collection bag. Do not disconnect the catheter from the collection bag. Use a leg band to secure the drainage tube, so it does not pull on the catheter. Drain the collection bag when it becomes full using the drain spout at the bottom of the bag. Do not try to pull or remove your catheter. This will injure your urethra. It must be removed by a doctor or nurse. Follow Up with your doctor, or as advised, for repeat urine testing and catheter removal or replacement. Get Prompt Medical Attention if any of the following occur: Fever of 100.4F (38C) or higher, or as directed by your healthcare provider Bladder pain or fullness Abdominal swelling, nausea or vomiting or back pain Blood or urine leakage around the catheter Bloody urine coming from the catheter (if a new symptom) Catheter falls out Catheter stops draining for 6 hours Weakness, dizziness or fainting Urinary Retention (Female) Urinary retention means that you are unable to pass urine, even though your bladder is full. The most common cause for this is a bladder infection. Although, certain medicines can also cause this problem. This condition is treated by insertion of a catheter into the bladder to drain off the urine. This provides immediate relief. The catheter may need to remain in place for a few days to prevent a recurrence. The catheter has a balloon on the tip which was inflated after insertion. This prevents the catheter from falling out. Home Care: If an antibiotic was prescribed to treat a bladder infection, be sure to take it until finished, even if you are feeling better before it is all gone. If a catheter was left in place, it is important to keep bacteria from getting into the collection bag. Do not disconnect the catheter from the collection bag. Use a leg band to secure the drainage tube, so it does not pull on the catheter. Drain the collection bag when it becomes full using the drain spout at the bottom of the bag. Do not try to pull or remove your catheter. This will injure your urethra. It must be removed by a doctor or nurse. Follow Up with your doctor as advised. If a catheter was left in place, it can usually be removed within 3-7 days. Some conditions require that the catheter remains in longer. Follow up with your doctor to determine the right time for you. Get Prompt Medical Attention if any of the following occur: Fever of 100.4F (38C) or higher, or as directed by your healthcare provider Bladder or lower abdominal pain or fullness Abdominal swelling, nausea, vomiting or back pain Blood or urine leakage around the catheter Bloody urine coming from the catheter (if a new symptom) Weakness, dizziness or fainting Confusion or change in usual level of alertness If a catheter was left in place, return if: Catheter falls out Catheter stops draining for 6 hours You have been given the following additional information: Sanchez Catheter, Care Urinary Retention, Female (Electronically signed by Rayna Delarosa P.A.-C 04/15/2016 16:40)
== END 2016-04-15 16:22 | disposition home or self-care (01) ==
LOC: ED SRH 13:40
DX: T36.8X5A Adverse effect of other systemic antibiotics, initial encounter (principal); T38.0X5A Adverse effect of glucocorticoids and synthetic analogues, initial encounter; R33.0 Drug induced retention of urine; Z46.6 Encounter for fitting and adjustment of urinary device
CPT/HCPCS: 81240; 90004; 90047; 90074; 93070; 95059